=== PATIENT | female | born 1990 ===

== ENCOUNTER 2017-06-23 15:42 | Emergency (ER) | payer SELFPAY | END 2017-06-23 17:15 | disposition home or self-care (01) | LOC: H.EROB2 15:42 | DX: O47.1 False labor at or after 37 completed weeks of gestation (principal); Z3A.40 40 weeks gestation of pregnancy; O26.93 Pregnancy related conditions, unspecified, third trimester; R10.2 Pelvic and perineal pain ==

== ENCOUNTER 2017-06-23 21:06 | Inpatient (IN) | payer MEDICAID, SELFPAY ==
--- NOTE | 2017-06-23 21:20 | OBHP ---
Datetime: 06/23/2017 20:16 IP Adm Impression: Term, intrauterine IP Admit Plan: Observation/Evaluation; Discharge home Admit Comment, IP Provider: 27 yo EDC 06/21 confirmed by 7wk us presents w/ c/o ctxs since 5 am with increased pain and freq. rates pain 02/07. denies vag bleeding, srom, decreased fm. states ob hx unremarkable pmhx: denies pshx: denies obhx: spab x2 nkda medic; pnv shx: denies illicit drug use, tobacco or etoh i: 40.2wks latent phase labor p; labor precautions kick counts Pelvic Type - PN: Adequate Extremities - PN: Normal Lungs - PN: Normal Heart - PN: Normal HEENT - PN: Normal General - PN: Normal Presentation-Admit: Vertex FHR - Baseline A Provider: 120 Membranes, Provider: Intact Contraction Comments Provider: q5 irreg NICHD Variability Prov Fetus A: Moderate 6-25bpm NICHD Accel Fetus A IP Provider: [id number] FHR Category Provider Fetus A: Category I NICHD Decel Fetus A IP Provider: None Dilatation, Provider: 2 Effacement, Provider: 80 Station, Provider: -2 Genitourinary Exam: Normal (Annotations: Data stored by CPN on behalf of user)
[2017-06-23 21:54] VITALS: BMI 31.6
[2017-06-23] MEDS ORDERED: Fentanyl/Bupivacaine HCl 250 ML EPI ONE (22:00)
[2017-06-23] MEDS: Lactated Ringer's 1,000 ML IV SCH ×3 (22:02→23:45)
[2017-06-23] MEDS ORDERED: Oxytocin 30 UNITS in Sodium Chloride 0.9% 500 ML IV ONE (22:18)
[2017-06-23 22:22] LABS: BASO % 0.3 % (0.0-2.0); EOS % 0.3 % (0.0-4.0); HEMATOCRIT 34.7 % (34.0-47.0); LYMPH # 1.3 K/uL (1.0-4.3); LYMPH % 10.4 % (20.0-40.0); MEAN CELL VOLUME 86.9 fl (81.0-99.0); MEAN CORPUSCULAR HEMOGLOBIN 28.8 pg (27.0-31.0); MEAN CORPUSCULAR HGB CONC 33.2 g/dL (33.0-37.0); MEAN PLATELET VOLUME 7.4 fl (7.2-11.7); MONO # 0.7 K/uL (0.0-0.8); MONO % 5.4 % (0.0-10.0); NEUT # 10.4 K/uL (1.8-7.0); NEUT % 83.6 % (50.0-75.0); NRBC % 0.3 % (0.0-0.0); RED CELL DISTRIBUTION WIDTH 14.9 % (11.5-14.5); WHITE BLOOD COUNT 12.4 K/uL (4.8-10.8)
[2017-06-24] MEDS ORDERED: Oxytocin 30 UNITS in Sodium Chloride 0.9% 500 ML IV ONE ×2 (05:21→13:14)
[2017-06-24] MEDS: Lactated Ringer's 1,000 ML IV SCH (05:21)
[2017-06-24] MEDS ORDERED: Oxytocin 30 units/LR 500ML 30 U/500 ML BAG IV ONE (07:00)
[2017-06-24] MEDS ORDERED: Oxycodone/Acetaminophen 5/325 mg Tab PO PRN ×4 (10:02→13:14)
[2017-06-24] MEDS ORDERED: Benzocaine/Menthol SPRAY TOP PRN ×2 (10:02→13:14)
[2017-06-24] MEDS ORDERED: Lactated Ringer's 1,000 ML IV SCH (13:14)
[2017-06-25 06:14] LABS: HEMATOCRIT 24.6 % (34.0-47.0); MEAN CELL VOLUME 87.7 fl (81.0-99.0); MEAN CORPUSCULAR HEMOGLOBIN 28.8 pg (27.0-31.0); MEAN CORPUSCULAR HGB CONC 32.9 g/dL (33.0-37.0); RED CELL DISTRIBUTION WIDTH 15.2 % (11.5-14.5); WHITE BLOOD COUNT 12.4 K/uL (4.8-10.8)
[2017-06-25 12:38] VITALS: RESP 20; O2SAT 100
[2017-06-26 06:31] LABS: HEMATOCRIT 24.7 % (34.0-47.0); MEAN CELL VOLUME 88.4 fl (81.0-99.0); MEAN CORPUSCULAR HEMOGLOBIN 29.1 pg (27.0-31.0); MEAN CORPUSCULAR HGB CONC 32.9 g/dL (33.0-37.0); RED CELL DISTRIBUTION WIDTH 15.5 % (11.5-14.5); WHITE BLOOD COUNT 9.5 K/uL (4.8-10.8)
--- NOTE | 2017-06-26 07:37 | OBPPN ---
Datetime: 06/26/2017 07:21 PP Pain Prov: Within normal limits PP Nausea Prov: Denies PP Flatus Prov: Yes PP BM Prov: Yes PP Heart Prov: Normal PP Lungs Prov: Normal PP Abdomen/Uterus Prov: Normal PP Lochia Prov: Normal PP CVA Tenderness Prov: Normal PP Extremities Prov: Not Done PP C/S Incision Prov: Not Applicable PP Progress Prov: Normal PP Impression Prov: Normal progression PP Plan Prov: Discharge PP Progress Note Prov: 27 y/o F now on PPD 2. Pt had a on 06/24/17 with a 3rd degree p erineal laceration while . Pt reports feeling well. No acute events overnight. Pt reports vulva and pelvic pain have improved since yesterday. Pt tolerating PO. Pt ambulating. Pt and supplementing with formula. Pt denied headache, visual disturbances, N/V, Cp, SOB or pruritus. O: post- H/H was 8.1/24.6, PE Gen: Pt resting comfortably on bed, AAOx3, not in acute distress. Lungs: CTA B/L. No W/R/R. CV: S1 S2 present, regular rhythm. Abd: BS+, soft, fundus of uterus firm and bellow umbilicus. Ext: no edema, neg Obdulio's sign, non-tender calves. NEURO/PSYCH: no grossly focal deficit, preserved affect and mood. A/P: 27 y/o F on PPD 2, recovering well from and 3rd degree perineal laceration, with a nemia. -Will discharge pt home today. -Encourage . -Continue PNV 1 tab PO daily. -Ibuprofen 600mg PO PRN for moderate/severe pain. Feosol 325 mg BID and Colace PO PRN for constipa tion. -Ambulate with caution, no heavy lifting, nothing per vagina for 6 weeks. -If excessive bleeding, intolerable pain or fever despite medications, go to ER. - F/U with clinic within 4-6 weeks for post- evaluation. Case discussed with OB neonatal intensive care unit nurse. Tim PGY-1. OB Hospitalist Addendum: Pt seen and examined by me. Agree w/ above. PPD 2 s/p , doing well, breast feeding. Discharge home today. (ES) IP PP Procedures: None Vital Signs Provider PP: Reviewed Datetime: 06/25/2017 08:33 PP Breasts Prov: Not Done PP Vulva/Perineum Prov: Not Done
--- NOTE | 2017-06-26 11:00 | OBPPN ---
Datetime: 06/25/2017 08:33 PP Progress Note Prov: 27 y/o F now on PPD 1. Pt had a on 06/24/17 with a 3rd degree p erineal laceration while . Pt reports feeling well. No acute events overnight. Pt tolerating PO and reports pain is well controlled with medications. Pt c/o of burning pain while urination that is improved with provided medications. Pt ambulating. Pt and supplementing with formula fo r now. Pt denied headache, visual disturbances, N/V, Cp, SOB or pruritus. PE Gen: Pt resting comfortably on bed, AAOx3, not in acute distress. Lungs: CTA B/L. No W/R/R. CV: S1 S2 present, regular rhythm. Abd: BS+, soft, fundus of uterus firm and bellow umbilicus. Ext: no edema, neg Obdulio's sign, non-tender calves. NEURO/PSYCH: no grossly focal deficit, preserved affect and mood. A/P: 27 y/o F on PPD 1, recovering well from and 3rd degree perineal laceration. -Continue medical management - and ambulation encouraged. Case discussed with OB pipeline controller. Tim PGY-1. OB attending addendum: Patient seen and examined by me. Agree with above assessment and plan.
--- NOTE | 2017-06-26 11:00 | OBDCSUM ---
Datetime: 06/26/2017 07:26 Discharged to, Provider: Home Follow up at, Provider: [facility] Disch Instr Activity: Normal activity Disch Instr Diet: Regular Discharge Instructions, Provider: Routine instructions given Discharge Diagnosis, Provider: Term Delivered Discharge Time: 06/26/2017 11:00 Follow up in weeks, Provider: 4-6 weeks Disch Referrals: None Contraception discussed, Prov: No Disch Activity Restrictions: No exercising; No driving; Minimize walking; Minimize stair-climbing; N o sexual activity; Nothing in vagina - [place], tampons, douche Discharge Comment, Provider: -Encourage . -Continue PNV 1 tab PO daily. -Ibuprofen 600mg PO PRN for moderate/severe pain. Feosol 325 mg BID and Colace PO PRN for constipa tion. -Ambulate with caution, no heavy lifting, nothing per vagina for 6 weeks. -If excessive bleeding, intolerable pain or fever despite medications, go to ER. - F/U with clinic within 4-6 weeks for post- evaluation.
[2017-06-26 17:23] VITALS: BP 117/73; PULSE 89; TEMP 98.3
== END 2017-06-26 13:20 | disposition home or self-care (01) | DRG 775 ==
LOC: H.EROB2 21:06 → H.L&D 21:54 → H.OB/GYN 06-24 14:45
PROVIDERS: ADMIT Obstetrics & Gynecology; ATTEND Obstetrics & Gynecology
PROC: 0DQR0ZZ Repair Anal Sphincter, Open Approach (ICD-10-PCS; principal; 2017-06-23)
PROC: 10E0XZZ Delivery of Products of Conception, External Approach (ICD-10-PCS; 2017-06-23)
PROC: 4A1HXCZ Monitoring of Products of Conception, Cardiac Rate, External Approach (ICD-10-PCS; 2017-06-23)
DX: O70.20 Third degree perineal laceration during delivery, unspecified (principal); O99.02 Anemia complicating childbirth; Z37.0 Single live birth; Z3A.40 40 weeks gestation of pregnancy